=== PATIENT | female | born 1985 | race Caucasian/White ===

== ENCOUNTER 2018-03-25 10:24 | Emergency (ER) | payer MEDICAID ==
[~2018-03-25] VITALS: Ht 157.5 cm; Wt 51.0 kg
[2018-03-25] MEDS ORDERED: ONDANSETRON ODT 4 MG PO ONE (11:00)
[2018-03-25] MEDS ORDERED: ONDANSETRON ODT 4 MG ONE (11:05)
[2018-03-25] MEDS ORDERED: HYDROcodone/APAP 5/325 TABLET ONE (11:08)
[2018-03-25 11:30] LABS: BASOPHILS # (AUTO) 0.03 x10^3/uL (0-0.1); BASOPHILS % (AUTO) 1 % (0-1); EOSINOPHILS % (AUTO) 2 % (1-7); LYMPHOCYTES # (AUTO) 1.37 x10^3/uL (1-3.4); LYMPHOCYTES % (AUTO) 23 % (22-44); MD NO; MEAN CORPUSCULAR HEMOGLOBIN 32.3 pg (27.0-34.8); MEAN CORPUSCULAR HGB CONC 33.9 g/dL (32.4-35.8); MEAN CORPUSCULAR VOLUME 95.4 fL (80-100); MONOCYTES # (AUTO) 0.34 x10^3/uL (0.2-0.8); MONOCYTES % (AUTO) 6 % (2-9); NEUTROPHILS # (AUTO) 4.18 x10^3/uL (1.8-6.8); NEUTROPHILS % (AUTO) 70 % (42-75); PLATELET COUNT 327 x10^3/uL (130-400); RED BLOOD COUNT 4.28 x10^6/uL (3.82-5.3); RED CELL DISTRIBUTION WIDTH 14.3 % (9.6-15.2)
[2018-03-25] MEDS ORDERED: HYDROcodone/APAP 5/325 TABLET PO ONE (11:30)
[2018-03-25 11:43] LABS: ALBUMIN 3.9 g/dL (3.4-5.0); ANION GAP 6 mmol/L (5-15); CALCIUM 8.8 mg/dL (8.5-10.1); CHLORIDE 105 mmol/L (98-107)
[2018-03-25 11:48] LABS: ALANINE AMINOTRANSFERASE 38 U/L (12-78); ALKALINE PHOSPHATASE 44 U/L (45-117); BILIRUBIN,TOTAL 0.6 mg/dL (0.2-1.0); CREATININE 0.88 mg/dL (0.55-1.02); TOTAL PROTEIN 6.9 g/dL (6.4-8.2)
[2018-03-25 12:08] LABS: MICROSCOPIC INDICATED
[2018-03-25 12:37] LABS: CULTURE INDICATED? NO
[2018-03-25 12:57] VITALS: BP 100/59
== END 2018-03-25 13:14 | disposition home or self-care (01) ==
LOC: ED 11:00
DX: M54.6 Pain in thoracic spine (principal); F17.200 Nicotine dependence, unspecified, uncomplicated
CPT/HCPCS: 36415; 74176; 80053; 81001; 84703; 85025; 99285; Q0162

== ENCOUNTER 2018-06-07 16:00 | Emergency (ER) | payer MEDICAID ==
[~2018-06-07] VITALS: Ht 157.5 cm; Wt 112.0 kg
[2018-06-07] MEDS ORDERED: VENL150C PO (16:34)
[2018-06-07 17:27] LABS: BASOPHILS # (AUTO) 0.03 x10^3/uL (0-0.1); BASOPHILS % (AUTO) 0 % (0-1); EOSINOPHILS # (AUTO) 0.07 x10^3/uL (0-0.4); EOSINOPHILS % (AUTO) 1 % (1-7); LYMPHOCYTES # (AUTO) 1.29 x10^3/uL (1-3.4); LYMPHOCYTES % (AUTO) 18 % (22-44); MD NO; MEAN CORPUSCULAR HEMOGLOBIN 33.2 pg (27.0-34.8); MEAN CORPUSCULAR HGB CONC 35.2 g/dL (32.4-35.8); MEAN CORPUSCULAR VOLUME 94.4 fL (80-100); MEAN PLATELET VOLUME 7.7 fL (7.4-10.4); MONOCYTES # (AUTO) 0.33 x10^3/uL (0.2-0.8); MONOCYTES % (AUTO) 4 % (2-9); NEUTROPHILS # (AUTO) 5.65 x10^3/uL (1.8-6.8); NEUTROPHILS % (AUTO) 77 % (42-75); PLATELET COUNT 413 x10^3/uL (130-400); RED BLOOD COUNT 4.19 x10^6/uL (3.82-5.3); RED CELL DISTRIBUTION WIDTH 13.1 % (9.6-15.2)
[2018-06-07 17:45] LABS: ALANINE AMINOTRANSFERASE 24 U/L (12-78); ALBUMIN 3.9 g/dL (3.4-5.0); ANION GAP 10 mmol/L (5-15); CHLORIDE 109 mmol/L (98-107); CREATININE 0.95 mg/dL (0.55-1.02)
[2018-06-07 17:50] LABS: ALKALINE PHOSPHATASE 60 U/L (45-117); BILIRUBIN,TOTAL 0.4 mg/dL (0.2-1.0); TOTAL PROTEIN 7.5 g/dL (6.4-8.2); TROPONIN I < 0.015 ng/mL (0.000-0.045)
[2018-06-07 18:04] VITALS: BP 117/79
== END 2018-06-07 18:24 | disposition home or self-care (01) ==
LOC: ED 16:47
DX: R42 Dizziness and giddiness (principal); R06.02 Shortness of breath; F41.1 Generalized anxiety disorder
CPT/HCPCS: 36415; 71045; 80053; 84484; 84703; 85025; 93005; 99285

== ENCOUNTER 2018-06-08 13:06 | Emergency (ER) | payer MEDICAID ==
[~2018-06-08] VITALS: Ht 157.5 cm; Wt 50.9 kg
[~2018-06-08 13:06] MED LIST: VENL150C PO
[2018-06-08 14:57] VITALS: BP 113/76
== END 2018-06-08 15:00 | disposition home or self-care (01) ==
LOC: ED 13:59
DX: F41.1 Generalized anxiety disorder (principal); R11.0 Nausea; M79.669 Pain in unspecified lower leg; Z90.49 Acquired absence of other specified parts of digestive tract
CPT/HCPCS: 70450; 93005; 99284

== ENCOUNTER 2019-03-19 04:22 | Emergency (ER) | payer MEDICAID ==
[~2019-03-19] VITALS: Ht 157.5 cm; Wt 55.2 kg
[2019-03-19 05:33] LABS: BASOPHILS # (AUTO) 0.01 x10^3/uL (0-0.1); BASOPHILS % (AUTO) 0 % (0-1); EOSINOPHILS # (AUTO) 0.08 x10^3/uL (0-0.4); EOSINOPHILS % (AUTO) 2 % (1-7); LYMPHOCYTES # (AUTO) 1.43 x10^3/uL (1-3.4); LYMPHOCYTES % (AUTO) 28 % (22-44); MD NO; MEAN CORPUSCULAR HEMOGLOBIN 29.3 pg (27.0-34.8); MEAN CORPUSCULAR HGB CONC 32.8 g/dL (32.4-35.8); MEAN CORPUSCULAR VOLUME 89.4 fL (80-100); MEAN PLATELET VOLUME 7.6 fL (7.4-10.4); MONOCYTES # (AUTO) 0.38 x10^3/uL (0.2-0.8); MONOCYTES % (AUTO) 7 % (2-9); NEUTROPHILS # (AUTO) 3.26 x10^3/uL (1.8-6.8); NEUTROPHILS % (AUTO) 63 % (42-75); PLATELET COUNT 305 x10^3/uL (130-400); RED BLOOD COUNT 4.09 x10^6/uL (3.82-5.3); RED CELL DISTRIBUTION WIDTH 13.5 % (9.6-15.2)
[2019-03-19 06:43] LABS: HCT (SEDRATE) 36.6 % (34.6-47.8)
--- NOTE | 2019-03-19 06:47 | NUR ---
PT GIVEN FOOD, PT READY FOR DC.
[2019-03-19 06:50] VITALS: BP 96/53
== END 2019-03-19 06:52 | disposition home or self-care (01) ==
LOC: ED 05:16
DX: L03.116 Cellulitis of left lower limb (principal); F17.200 Nicotine dependence, unspecified, uncomplicated; Z90.49 Acquired absence of other specified parts of digestive tract
CPT/HCPCS: 36415; 84550; 85025; 85651; 99284

== ENCOUNTER 2019-09-13 03:48 | Emergency (ER) | payer MEDICAID ==
[~2019-09-13] VITALS: Ht 160 cm; Wt 65.6 kg
--- NOTE | 2019-09-13 04:04 | NUR ---
Patient has abscess on right wrist. She states it started yesterday and has gotten bigger since then. Patient has discomfort. Redness and swelling noted. No drainage noted.
[2019-09-13] MEDS ORDERED: LIDOCAINE-MPF 1%, 5ML ONE (04:17)
[2019-09-13] MEDS ORDERED: HYDROcodone/APAP 5/325 TABLET ONE (04:18)
[2019-09-13] MEDS ORDERED: OXYcodone/APAP 5/325MG TABLET ONE (04:24)
[2019-09-13] MEDS ORDERED: DIPH,PERTUSS(ACELL),TET VAC/PF 0.5 ML IM-VACC ONE ×2 (04:24→04:30)
[2019-09-13] MEDS ORDERED: LIDOCAINE-MPF 1%, 5ML INFIL ONE (04:30)
[2019-09-13] MEDS ORDERED: OXYcodone/APAP 5/325MG TABLET PO ONE (04:30)
[2019-09-13 05:11] VITALS: BP 116/75
--- NOTE | 2019-09-13 05:15 | NUR ---
Patient discharge instructions given. All questions and concerns addressed. Patient ambulatory with a steady gait. Belongings with patient.
== END 2019-09-13 05:17 | disposition home or self-care (01) ==
LOC: ED 05:00
DX: L02.413 Cutaneous abscess of right upper limb (principal); Z90.49 Acquired absence of other specified parts of digestive tract
CPT/HCPCS: 10060; 90471; 90715; 99283

== ENCOUNTER 2019-09-16 01:09 | Emergency (ER) | payer MEDICAID ==
[~2019-09-16] VITALS: Ht 157.5 cm; Wt 64.9 kg
[2019-09-16] MEDS ORDERED: CEPH-368 PO (01:35)
[2019-09-16] MEDS ORDERED: SULF1TAB23 PO (01:35)
--- NOTE | 2019-09-16 01:47 | NUR ---
THIS IS A 34 YO FEMALE COMING IN FOR A RECHECK OF WOUND ON RIGHT WRIST. PATIENT WAS SEEN HERE [facility] FOR WHAT SHE THOUGHT WAS A SPIDER BITE, AND COMING BACK IN NOW TO GET DRESSING CHANGED. PATIENT ALSO C/O WOUND ON RIGHT LOWER LEG THAT IS NEW, PA NOTIFIED OF NEW WOUND. CALL LIGHT IN REACH, PATIENT HAS PERSONAL DOG WITH HER IN ROOM.
[2019-09-16] MEDS ORDERED: HYDROcodone/APAP 5/325 TABLET PO STA (01:48)
[2019-09-16] MEDS ORDERED: ONDANSETRON ODT 4 MG PO ONE (02:00)
[2019-09-16] MEDS ORDERED: ONDANSETRON ODT 4 MG ONE ×3 (02:10→02:14)
[2019-09-16] MEDS ORDERED: HYDROcodone/APAP 5/325 TABLET ONE (02:11)
--- NOTE | 2019-09-16 02:16 | NUR ---
PATIENT MEDICATED PER EMAR, TOLERATED WELL. NEEDS ADDRESSED AT THIS TIME.
[2019-09-16 02:43] VITALS: BP 94/57
--- NOTE | 2019-09-16 02:44 | NUR ---
PATIENT STATES "I FEEL REALLY DIZZY RIGHT NOW, IFEEL FUCKING HORRIBLE". PATIENT PLACED ON CONTINUOUS SPO2, AT 100% RA, CYCLE BP Q1HR. RYAN REYNOSO MD NOTIFIED, CALL LIGHT IN REACH.
--- NOTE | 2019-09-16 02:51 | NUR ---
PATIENT PROVIDED WITH FLUIDS AND CRACKERS TO TRY TO KEEP DOWN
== END 2019-09-16 03:29 | disposition home or self-care (01) ==
LOC: ED 01:21
DX: L02.413 Cutaneous abscess of right upper limb (principal); F11.20 Opioid dependence, uncomplicated
CPT/HCPCS: 99283; Q0162

== ENCOUNTER 2020-01-03 03:08 | Emergency (ER) | payer MEDICAID ==
[~2020-01-03] VITALS: Ht 160 cm; Wt 69.8 kg
[~2020-01-03 03:08] MED LIST changes: +CEPH-368 PO; +SULF1TAB23 PO
[2020-01-03 03:17] VITALS: BP 128/86
[2020-01-03 03:59] LABS: BASOPHILS # (AUTO) 0.03 x10^3/uL (0-0.1); BASOPHILS % (AUTO) 1 % (0-1); EOSINOPHILS # (AUTO) 0.16 x10^3/uL (0-0.4); EOSINOPHILS % (AUTO) 3 % (1-7); LYMPHOCYTES # (AUTO) 1.46 x10^3/uL (1-3.4); LYMPHOCYTES % (AUTO) 27 % (22-44); MD NO; MEAN CORPUSCULAR HEMOGLOBIN 27.6 pg (27.0-34.8); MEAN CORPUSCULAR HGB CONC 33.2 g/dL (32.4-35.8); MEAN PLATELET VOLUME 7.1 fL (7.4-10.4); MONOCYTES % (AUTO) 4 % (2-9); NEUTROPHILS # (AUTO) 3.48 x10^3/uL (1.8-6.8); NEUTROPHILS % (AUTO) 66 % (42-75); PLATELET COUNT 411 x10^3/uL (130-400); RED BLOOD COUNT 4.23 x10^6/uL (3.82-5.3); RED CELL DISTRIBUTION WIDTH 15.7 % (9.6-15.2)
[2020-01-03 04:11] LABS: ALBUMIN 3.2 g/dL (3.4-5.0); ANION GAP 5 mmol/L (5-15); CALCIUM 9.2 mg/dL (8.5-10.1); CHLORIDE 104 mmol/L (98-107)
[2020-01-03 04:15] LABS: ALANINE AMINOTRANSFERASE 28 U/L (12-78); ALKALINE PHOSPHATASE 82 U/L (45-117); BILIRUBIN,TOTAL 0.2 mg/dL (0.2-1.0); TOTAL PROTEIN 7.8 g/dL (6.4-8.2)
== END 2020-01-03 04:48 | disposition home or self-care (01) ==
LOC: ED 03:35
DX: L03.114 Cellulitis of left upper limb (principal); L03.113 Cellulitis of right upper limb; L02.414 Cutaneous abscess of left upper limb; L02.413 Cutaneous abscess of right upper limb; F11.20 Opioid dependence, uncomplicated; Z72.9 Problem related to lifestyle, unspecified; F17.200 Nicotine dependence, unspecified, uncomplicated; Z90.49 Acquired absence of other specified parts of digestive tract
CPT/HCPCS: 36415; 80053; 84703; 85025; 93005; 99284

== ENCOUNTER 2020-09-28 12:20 | Emergency (ER) | payer MEDICAID ==
[~2020-09-28] VITALS: Ht 160 cm; Wt 74.8 kg
[2020-09-28 12:27] VITALS: BP 122/75
--- NOTE | 2020-09-28 13:30 | NUR ---
BREAK RN: Patient/Caregiver given discharge instructions and they have confirmed that they understand the instructions. Patient ambulatory with steady gait.
== END 2020-09-28 13:31 | disposition home or self-care (01) ==
LOC: ED 13:05
DX: B34.9 Viral infection, unspecified (principal); Z20.822 Contact with and (suspected) exposure to COVID-19; Z90.49 Acquired absence of other specified parts of digestive tract; Z88.5 Allergy status to narcotic agent; Z88.6 Allergy status to analgesic agent; Z90.89 Acquired absence of other organs
CPT/HCPCS: 87635; 99283

== ENCOUNTER 2021-01-06 22:32 | Emergency (ER) | payer MEDICAID ==
[~2021-01-06] VITALS: Ht 160 cm; Wt 70.5 kg
--- NOTE | 2021-01-06 22:55 | NUR ---
pt came into ed this evening for vomitting x1 day, started this am. pt reports she cannot keep any fluids down and is extremely thirsty. denies abdominal pain, states it is just tender from throwing up pt resting on gurney, changed into gown, placed on spo2/bp monitoring at this time. provided warm blankets for comfort, bed in lowest, rails engaged, call light on lap, wctm. lennox sosa at bs for eval and poc.
[2021-01-06] MEDS ORDERED: ONDANSETRON 2MG/ML, 2ML IVPush ONE (23:00)
[2021-01-06] MEDS ORDERED: SODIUM CHLORIDE FLUSH 10ML SYR IVF ONE (23:00)
[2021-01-06] MEDS ORDERED: SODIUM CHLORIDE 0.9% 1,000ML IVBOLUS ONE (23:00)
[2021-01-06] MEDS ORDERED: ONDANSETRON 2MG/ML, 2ML ONE (23:04)
--- NOTE | 2021-01-06 23:25 | NUR ---
iv access unable to be obtained by this rn, ultrasound iv to be attempted.
--- NOTE | 2021-01-06 23:48 | NUR ---
iv access obtained, pt medicated per nov, ns running. pt bed in [facility], rails engaged, call light on lap, fluids ok per pa. pt vomitted approximately 450ml of brownish liquid bile. pt nad, denies additional needs, provided more warm blankets for comfort, wctm.
[2021-01-06 23:49] LABS: BASOPHILS % (AUTO) 0 % (0-1); EOSINOPHILS % (AUTO) 1 % (1-7); LYMPHOCYTES % (AUTO) 9 % (22-44); MEAN CORPUSCULAR HGB CONC 33.4 g/dL (32.4-35.8); MEAN PLATELET VOLUME 7.5 fL (7.4-10.4); MONOCYTES % (AUTO) 5 % (2-9); NEUTROPHILS % (AUTO) 86 % (42-75); PLATELET COUNT 449 x10^3/uL (130-400); RED BLOOD COUNT 4.28 x10^6/uL (3.82-5.3); RED CELL DISTRIBUTION WIDTH 21.1 % (9.6-15.2)
[2021-01-06 23:55] LABS: MD NO
[2021-01-06 23:59] LABS: ALANINE AMINOTRANSFERASE 27 U/L (12-78); ALBUMIN 2.7 g/dL (3.4-5.0); ANION GAP 8 mmol/L (5-15); CALCIUM 8.6 mg/dL (8.5-10.1); CHLORIDE 104 mmol/L (98-107); CREATININE 1.21 mg/dL (0.55-1.02)
[2021-01-07 00:04] LABS: ALKALINE PHOSPHATASE 116 U/L (45-117); BILIRUBIN,TOTAL 0.4 mg/dL (0.2-1.0); TOTAL PROTEIN 8.3 g/dL (6.4-8.2)
[2021-01-07 00:29] VITALS: BP 106/71
[2021-01-07] MEDS ORDERED: POTASSIUM CHLORIDE 20 MEQ TAB.ER.PRT ONE (00:39)
--- NOTE | 2021-01-07 00:44 | NUR ---
Patient/Caregiver given discharge instructions and they have confirmed that they understand the instructions. Patient ambulatory with steady gait. nad, no personal belongings left in room, denies addditional questions at this time.
[2021-01-07] MEDS ORDERED: POTASSIUM CHLORIDE 20 MEQ TAB.ER.PRT PO ONE (01:00)
== END 2021-01-07 01:09 | disposition home or self-care (01) ==
LOC: ED 01-07 00:45
DX: R11.2 Nausea with vomiting, unspecified (principal); R10.84 Generalized abdominal pain
CPT/HCPCS: 36415; 80053; 83690; 84703; 85025; 96374; 99283; J2405; J7030